=== PATIENT | male | born 1950 | race Caucasian/White ===

== ENCOUNTER 2016-09-30 10:45 | Inpatient (IN) | payer BC ==
[2016-09-29 14:29] LABS: BASOPHILS 0.3 %; BASOPHILS ABSOLUTE 0.03 10/3/uL (0.0-0.16); EOSINOPHILS 0.9 %; EOSINOPHILS ABSOLUTE 0.08 10/3/uL (0.0-0.53); HEMATOCRIT 45.9 % (40.0-51.0); HEMOGLOBIN 15.3 g/dL (13.6-17.8); IMMATURE GRANULOCYTES 0.2 %; IMMATURE GRANULOCYTES ABSOLUTE 0.02 10/3/uL (0.0-0.11); LYMPHOCYTES 27.5 %; LYMPHOCYTES ABSOLUTE 2.47 10/3/uL (0.67-4.30); MEAN CORPUS HGB CONC 33.3 g/dL (32.0-36.0); MEAN CORPUSCULAR HEMOGLOB 29.7 pg (26.0-34.0); MONOCYTES 9.7 %; MONOCYTES ABSOLUTE 0.87 10/3/uL (0.21-1.20); NEUTROPHILS 61.4 %; NEUTROPHILS ABSOLUTE 5.51 10/3/uL (2.02-8.40); PLATELET COUNT 321 10/3/uL (150-400); RED CELL COUNT 5.16 10/6/uL (4.7-6.1)
[2016-09-29 14:30] LABS: MANUAL DIFF NO %
[2016-09-29 15:15] LABS: A/G RATIO 1.3 (0.7-1.9); ALKALINE PHOSPHATASE 144 U/L (45-117); BUN (BLOOD UREA NITROGEN) 13 MG/DL (6-23); CALCIUM, SERUM 9.2 MG/DL (8.5-10.4); CHLORIDE, SERUM 101 MMOL/L (96-112); CO2 (CARBON DIOXIDE) 27 MMOL/L (24-34); CREATININE 0.64 MG/DL (0.70-1.30); GFR AFRICAN AMERICAN 120 ML/MIN (>=60); GFR NON AFRICAN AMERICAN 103 ML/MIN (>=60); GLOBULIN 3.1 G/DL (2.5-4.1); GLUCOSE, SERUM 89 MG/DL (60-99); POTASSIUM, SERUM 4.5 MMOL/L (3.5-5.3); SGOT(AST) 26 U/L (5-40); SGPT(ALT) 29 U/L (5-65); SODIUM, SERUM 135 MMOL/L (135-148); TOTAL BILIRUBIN 0.2 MG/DL (0-1.2); TOTAL PROTEIN 7.1 G/DL (6.0-8.5)
--- NOTE | ~2016-09-30 | OP ---
Record Of Operation [facility] [address] [place]. [address] NAME: HARMAN THOMAS : 54 STATUS : ADM IN PAT#: [id number] AGE: 66 ADM/REG DATE : 09/30/16 MR#: [id number] REPORT SERV DATE: 10/01/16 DICTATED BY: LUCILA ANDRES JR. DATE: 09/30/16 REPORT STATUS : Draft TRANSCRIBED BY: MODCyn DATE: 09/30/16 DATE OF PROCEDURE: 09/30/2016 PREOPERATIVE DIAGNOSES: Right lower lobe non-small cell lung cancer, hemoptysis, COPD, chronic bronchitis, history of previous appendectomy and hernia repair, and hypertension. POSTOPERATIVE DIAGNOSES: Right lower lobe non-small cell lung cancer, hemoptysis, COPD, chronic bronchitis, history of previous appendectomy and hernia repair, and hypertension. NAME OF OPERATION: Bronchoscopy, right thoracoscopy with right lower lobectomy, complete mediastinal node dissection, isai stations 7, 9, 11R, and intercostal nerve block. RESIDENT SURGEON: Harman Hammond. MOVIE STUNT PERFORMER: Landen Sy. ANESTHESIA: General endotracheal. FINDINGS: The patient was noted to have a large tumor with some puckering of the visceral pleura, arising from the middle portion of the right lower lobe. It was not involving the chest wall or any surrounding parietal or pleural structures. There were no other abnormalities noted. On bronchoscopy, his anatomy was normal. There were mucous secretions evacuated. There was no contraindication proceeding on with the procedure. Final pathology is pending. DETAILS OF OPERATION: After adequate general anesthesia, the patient was intubated. Bronchoscopy was performed noting no endobronchial lesions. Mucous secretions were evacuated. A left-sided double-lumen endotracheal tube was then placed. The patient was then positioned in the left lateral decubitus position where the right chest was prepped and draped in a routine sterile fashion. A small incision was made overlying the lower intercostal space. A separate anterior trocar incision was also made. Through these two incision sites, the above findings were noted. The chest explored noting no contraindications to resection. The inferior pulmonary ligament was then taken down. The inferior pulmonary vein was identified as well as the superior pulmonary vein. The inferior pulmonary vein was transected with a vascular stapler. The bronchus was divided. We dissected out and divided with a ARIS stapler. The fissure and pulmonary artery were divided with multiple firings of ARSI stapler with tissue reinforcements. The specimen was placed in a specimen bag and withdrawn through the anterior trocar site. Nodes from the right hilar, subcarinal, and the inferior pulmonary ligament regions were removed. An intercostal nerve block was performed. Adequate hemostasis was obtained. The chest was thoroughly irrigated with sterile water. A 20-[place] chest tube was placed. The lung was reinflated. The trocar sites were closed with running Vicryl sutures. The skin was closed with running monofilament suture. A Dermabond dressing was applied and the procedure was terminated at this point. The patient tolerated the procedure well and taken back to the recovery room in stable condition. Record Of Operation [address] [place]. [address] NAME: HARMAN THOMAS : 54 STATUS : ADM IN PAT#: [id number] AGE: 66 ADM/REG DATE : 09/30/16 MR#: [id number] REPORT SERV DATE: 10/01/16 DICTATED BY: LUCILA ANDRES JR. DATE: 09/30/16 REPORT STATUS : Draft TRANSCRIBED BY: JESSE DATE: 09/30/16 JENNY/JESSE Lucila Andres Jr., M.D. / [id number] CC: Michael Toro Jr., MD
[~2016-09-30 10:45] MED LIST: MULTIPLE VIT PO; [UNRECOGNIZED DRUG - OTHER] PO
[2016-10-01 05:55] LABS: BASOPHILS 0.1 %; BASOPHILS ABSOLUTE 0.01 10/3/uL (0.0-0.16); EOSINOPHILS 0 %; HEMATOCRIT 43.9 % (40.0-51.0); HEMOGLOBIN 14.6 g/dL (13.6-17.8); IMMATURE GRANULOCYTES 0.2 %; IMMATURE GRANULOCYTES ABSOLUTE 0.02 10/3/uL (0.0-0.11); LYMPHOCYTES 9.4 %; MANUAL DIFF NO %; MEAN CORPUS HGB CONC 33.3 g/dL (32.0-36.0); MEAN CORPUSCULAR HEMOGLOB 29.9 pg (26.0-34.0); MEAN CORPUSCULAR VOLUME 89.8 fL (80-100); MEAN PLATELET VOLUME 9.7 fL (9.2-13.0); MONOCYTES ABSOLUTE 1.02 10/3/uL (0.21-1.20); NEUTROPHILS 82.3 %; NEUTROPHILS ABSOLUTE 10.58 10/3/uL (2.02-8.40); PLATELET COUNT 290 10/3/uL (150-400); RBC DISTRIBUTION WIDTH 12.9 % (12.0-16.0); RED CELL COUNT 4.89 10/6/uL (4.7-6.1); WHITE BLOOD CELLS 12.8 10/3/uL (4.5-10.5)
[2016-10-01 06:12] LABS: BUN (BLOOD UREA NITROGEN) 11 MG/DL (6-23); CALCIUM, SERUM 8.8 MG/DL (8.5-10.4); CHLORIDE, SERUM 102 MMOL/L (96-112); CO2 (CARBON DIOXIDE) 26 MMOL/L (24-34); CREATININE 0.77 MG/DL (0.70-1.30); GFR AFRICAN AMERICAN 111 ML/MIN (>=60); GFR NON AFRICAN AMERICAN 96 ML/MIN (>=60); POTASSIUM, SERUM 4.6 MMOL/L (3.5-5.3); SODIUM, SERUM 135 MMOL/L (135-148)
[2016-10-01 06:15] LABS: GLUCOSE, SERUM 157 MG/DL (60-99)
[2016-10-01] MEDS ORDERED: PCET PO (08:29)
== END 2016-10-01 11:51 | disposition home or self-care (01) | DRG 164 ==
LOC: SDC/OF 10:45 → 5NO 19:39
PROVIDERS: Thoracic Surgery (Cardiothoracic Vascular Surgery)
PROC: 07B74ZZ Excision of Thorax Lymphatic, Percutaneous Endoscopic Approach (ICD-10-PCS; 2016-09-30)
PROC: 3E0T3BZ Introduction of Anesthetic Agent into Peripheral Nerves and Plexi, Percutaneous Approach (ICD-10-PCS; 2016-09-30)
PROC: 0BTF4ZZ Resection of Right Lower Lung Lobe, Percutaneous Endoscopic Approach (ICD-10-PCS; principal; 2016-09-30 13:00)
DX: C34.31 Malignant neoplasm of lower lobe, right bronchus or lung (principal); R04.2 Hemoptysis; J44.9 Chronic obstructive pulmonary disease, unspecified; I10 Essential (primary) hypertension; Z87.891 Personal history of nicotine dependence
CPT/HCPCS: 36415; 71020; 80048; 80053; 82962; 85025; 85610; 86850; 86900; 86901; 87641; 88305; 88307; 88309; 88313; 88331; 88341; 88342; 88344; 93005; 94640; A9270-GY; J0690; J2250; J2370; J2405; J2710; J2795; J3010